=== PATIENT | female | born 1980 | race Caucasian/White ===

== ENCOUNTER 2024-11-03 07:09 | Day surgery (SDC) | payer OTHER, SELFPAY ==
[2024-10-20 09:45] VITALS: BMI 23.5
--- OUTSIDE RECORDS SUMMARY | 2024-11-03 07:12 | XMS_ITS | Encounter Summary ---
Author Organization [facility] Healthcare Address [address] [place] [address] Care Team Providers Care Cake Tester Name Role Phone Liya Leung MD Primary Care Provider WhitlashLiya MD Unavailable Encounter Details Date Type Department Care Team (Late st Contact Info) Description 10/15/2024 Results Follow-Up [facility] [address] [place] [id number] Yeni Cho MD [address] [facility] [id number] [place] [address] Dexa Axial Skeleton Bone Density 1 or 2 Site Social History Tobacco Use Types Packs/Day Years Used Date Smoking Tobacco: Former Cigarettes 0.3 10 0 06/03/2011 - 06/02/2021 Smokeless Tobacco: Never Comments:Light intermittent smoker since college but officially quit in May AUDIT-C Answer Date Recorded Q1: How often do you have a drink containing alc ohol? 2-3 times a week 07/05/2024 Q2: How many drinks containi ng alcohol do you have on a typical day when you are drinking? 1 or 2 07/05/2024 Q3: How often do you have si x or more drinks on one occasion? 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
--- OUTSIDE RECORDS SUMMARY | 2024-11-03 07:13 | XMS_ITS | Clinical Summary ---
Author Organization [facility] Address [facility] [place] [address] Care Team Providers Care Plastic Sheets Supervisor Name Role Phone Liya Leung MD Primary Care Provider SeanLiya sanders MD Unavailable [phone] Allergies Active Allergy Reactions Criticality Noted Date Comments Sulfa (Sulfonamide Antibiotics) Rash Medium 03/23 Medications budesonide-formo teroL (SYMBICORT) 80-4.5 mcg/actuation inhalerIndicatio ns:Mild intermittent asthma without complication,Pos t viral asthma,Subacute cough Inhale 2 puffs 2 (two) times a day as needed (shortness breath, wheezing) Rinse mouth with water after use. Do not swallow. 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 Premature menopause is associated with estrogen loss and leads to both short- term and long-term effects. In the short term, vasomotor symptoms, sleep disruption, vaginal dryness and sexual dysfunction can develop. Longer term effects include decreased bone mineral density and an increased risk of osteoporosis as well as an elevated risk of cardiovascular disease. Additionally, surgical menopause is a risk factor for increased all cause mortality. We discussed that estrogen therapy is the most effective treatment for vasomotor symptoms (hot flashes and night sweats) and to prevent declines in bone health in this context and is likely cardioprotective. Non-hormonal therapies are an option for patients who have contraindications to HT or make a personal choice not to use HT. These therapies are not as effective as estrogen, however many may provide relief from vasomotor symptoms. The recommendations for hormone replacement therapy given premature menopause is to use physiologic doses of estrogen therapy until the average age of natural menopause onset, approximately age 52. Recommended psychiatry for more severe mood symptoms including thoughts of self harm. Recommended meeting with breast cancer genetics counseling in the setting of family history of breast cancer diagnosed prior to menopause. She will decide which therapy to pursue after meeting with breast cancer genetics. We recommend DXA scan at this time. [facility] and ACOG handouts provided. Questions answered. Mild intermittent asthma without complication HNP (herniated nucleus pulposus), lumbar 021 Overview (07/24/2020): Added automatically from request for surgery [id number] Lumbar disc herniation with radiculopathy 2020 Herniation of intervertebral disc between L5 and S1 05/20/2020 Radiculopathy, lumbosacral region 04/17/2020 Encounters Date Type Department Care Team Description 10/15/2024 Results Follow-Up [facility] [address] [place] [address] Yeni Cho MD Dexa Axial Skeleton Bone Density 1 or 2 Site 10/13/2024 2:30 PM CDT Clinical Support [address]th [place] [address] [place] [address] Post-menopausal (Primary Dx); Premature ovarian failure; Osteoporosis screening 09/25/2024 Nurse Triage [facility]ne[facility] [address] [facility] 7th Floor [address] [place] [address] Liya Navarro, NED 08/17/2024 Telephone [facility]cology [address] [facility] 7th [address] [place] [address] Calvin Malone RN 08/10/2024 Nurse Triage [facility] Ob[facility]etric[facility] Gynecology [address] [facility] 7th [address] [place] [address] Liya Navarro, RN from Last 3 Months Immunizations Immunization Administration Dates Next Due Hep B, Unspecified 12/05/1999,07/11/1999, 000 Influenza, Quadrivalent, Rec ombinant, Egg Free, Preservative Free, Intramuscular 01/24/2016 Influenza, Quadrivalent, Spl it, Preservative Free, Intramuscular 03/12/2023,02/09/2022 Influenza, Trivalent, IM (MDV) 02/08/2014 Influenza, Trivalent, Preser vative Free, Intramuscular 12/25/2014 Influenza, Unspecified 12/22/2019,01/01/2018 MMR 06/05/1999 Surgical History Surgery Date Site/Laterality Comments AUGMENTATION MAMMOPLASTY 03/2016 LAPAROSCOPY ex lap for endometriosis BREAST SURGERY 03/2016 Medical History Medical History Date Comments Asthma Lumbar herniated disc Family History Medical History Relation Name Comments Allergy (severe) Father Cj Robles Asthma Father Cj Robles Cancer Father Cj Robles Prostate cancer Father Cj Robles Lung cancer Maternal Grandmother No Known Problems Mother Breast cancer Paternal Grandmother 50's Breast cancer Sister Keiko Colon cancer Neg Hx Relation Name Status Comments Father Cj Robles Alive Maternal Grandmother Mother Alive Paternal Grandmother 50's Sister Keiko Alive Social History Tobacco Use Types Packs/Day Years Used Date Smoking Tobacco: Former Cigarettes 0.3 10 0 06/03/2011 - 06/02/2021 Smokeless Tobacco: Never Tobacco Cessation:Counseling Given: Not Answered Comments:Light intermittent smoker since college but officially [...] on file 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 Gender Identity Not on file Sexual Orientation Not on file 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 on file Obstetrics History Para Term AB IAB SAB Ectopic Multiple Livin g Live Births 2 2 2 Date Outcome GA Total Labor Labor/2nd/3rd Weight Sex Type Anes PTL Kemi A1 A5 Name Clin 2008 Term M Vaginal Dario 2018 Term F Vaginal Bassem Last Filed Vital Signs Vital Sign Reading Time Taken Comments Blood Pressure 126/80 07/05/2024 3:11 PM CDT Pulse 71 03/12/2023 10:08 AM STATION ENGINEER Temperature 36.9 C (98.4 F) 02/24/2022 3:00 PM STATION ENGINEER Respiratory Rate 14 09/01/2022 10:40 AM CDT Oxygen Saturation 98% 02/24/2022 3:00 PM STATION ENGINEER Inhaled Oxygen Concentration - - Weight 71.9 kg (158 lb 9.6 oz) 07/05/2024 3:11 P M CDT Height 168.9 cm (5' 6.5) 07/05/2024 3:11 PM CDT Body Mass Index 25.22 07/05/2024 3:11 PM CDT Plan of Treatment Health Maintenance Due Date Last Done Comments Cervical Cancer Screening 1981 Hepatitis C Screening 1981 DTaP/Tdap/Td Vaccine (1 - Tdap) 1992 Pneumococcal vaccine <65 (1 of 2 - PCV) 2000 HPV Vaccines (1 - 3-dose SCD M series) 2008 Covid-19 Vaccine (4 - 2023-2 5 season) 2023 01/29/2021, 06/15/2020, 05/23/2020 Depression Screening 03/12/2024 03/12/2023, 03/10/2022, 07/18/2020, Additional history exists Breast Cancer Screening-Mammogram 05/31/2024 06/01/2023, 06/26/2022, 06/17/2021, Additional history exists Influenza Vaccine (#1) 2024 , 03/12/2023, 02/09/2022, Additional history exists Regular Well Visit/Exam 18-64 04/20/2025, 03/12/2023, 03/10/2022 Hepatitis B Screening Completed 12/05/1999 , 07/11/1999, 06/05/1999 Varicella Vaccines Discontinued Procedures Procedure Name Priority Date/Time Associated Diagnosis Comments DEXA AXIAL SKELETON BONE DENSITY 1 OR MORE SITES Schedule Routine, Read Routine (OP Routine) 10/13/2024 2:59 PM CDT Premature ovarian failure SCREENING MAMMOGRAM BILATERAL W JOSIAS W IMPLANTS Schedule Routine, Read Routine (OP Routine) 06/01/2023 10:47 AM CDT Screening mammogram, encounter for from Last 3 Months or Most Recently Relevant to Health Maintenance Results * Dexa Axial Skeleton Bone Density 1 or 2 Site (10/13/2024 2:59 PM CDT) Anatomical Region Laterality Modality Body N/A Radiographic Alondra ging Narrative 10/13/2024 4:10 PM CDT Patient Name: Rupa Mariscal Date of : 1980 Date of scan: 10/13/2024 Bone mineral density was performed on a HoloRadioRx Discovery Densitometer. Based on machine cross-calibration and precision studies the least significant changes of this densitometer is 0.024 g/cm2 at the spine, 0.020 g/cm2 at the total proximal femur, and 0.014g/cm2 at the forearm. HISTORY: This is a 44 y.o. postmenopausal female with a history of asthma. She reports that she quit smoking about 3 years ago. Her smoking use included cigarettes. She started smoking about 13 years ago. She has a 2.5 pack-year smoking history. She has never used smokeless tobacco. Currently on treatment with calcium, previously treated with leuprolide (Lupron), and current complaint of back pain. INDICATIONS: Menopause status, screening for osteoporosis, and family history of osteoporosis. FINDINGS: BONE MINERAL DENSITY OF THE LUMBAR SPINE Bone Mineral Density (BMD) of the lumbar spine was measured from L1-L4 and the average density was calculated to be 1.014 gm/cm2. This corresponds to a T-score (standard deviations from the mean of young adults) of -0.3. There is no previous study available for comparison. BONE MINERAL DENSITY OF THE PROXIMAL FEMUR Bone Mineral Density (BMD) of the left hip total was found to be 0.916 gm/cm2. This corresponds to a T-score standard deviations from the mean of young adults of -0.2. Femoral neck is 0.777 gm/cm2 with a T-score (standard deviations from the mean of young adults) of -0.6. There is no previous study available for comparison. SUMMARY: Bone mineral density is near the young adult normal mean with no increased risk for fracture. ADDITIONAL COMMENTS: Postmenopausal Women and Men Over 50: Diagnostic criteria: Osteoporosis: BMD at or below -2.5 T-score; Osteopenia (low bone mass): BMD between -1.0 and -2.5 T-score. If the patient has a history of a fragility fracture, a fracture that occurred with trauma equivalent to a fall from a standing position or less, then the diagnosis is osteoporosis regardless of bone density. The history and data sections of the bone mineral density scan were prepared by Marcus Hawley) JAYE who is accredited by the International Society of Clinical Densitometry. The overall patient assessment and scan interpretation were performed by Lisandra Lo M.D. who is certified by the International Society of Clinical Densitometry. [id number] us Veena Cheng MD IMLisa DXA PROCEDURES Final Resu lt * Screening Mammogram Bilateral W Josias W Implants (06/01/2023 10:47 AM CDT) Anatomical Region Laterality Modality Breast Bilateral Mammography Narrative 06/02/2023 10:59 AM CDT Mammogram Technique: Bilateral Digital Breast Tomosynthesis, Bilateral C-view 2D Screening mammogram. Views obtained: bilateral craniocaudal; bilateral craniocaudal implant displaced; bilateral mediolateral oblique; and bilateral mediolateral oblique implant displaced. Computer Aided Detection was performed. Mammogram Findings: The present examination has been compared to prior imaging studies performed at [facility] on 06/17/2021, 07/04/2021 and 06/26/2022. The breasts are heterogeneously dense, which may obscure small masses. There is no suspicious abnormality in either breast. Impression: There is no mammographic evidence of malignancy. Annual screening mammography is recommended. OVERALL FINAL ASSESSMENT: BI-RADS CATEGORY 1: Negative. Procedure Note Lisa Winston MD - 06/02/2023 Mammogram Technique: Bilateral Digital Breast Tomosynthesis, Bilateral C-view 2D Screening mammogram. Views obtained: bilateral craniocaudal; bilateralcraniocaudal implant displaced; bilateral mediolateral oblique; and bilateral mediolateral oblique implant displaced. Computer Aided Detection was performed. Mammogram Findings: The present examination has been compared to prior imaging studies performed at [facility] on 06/17/2021, 07/04/2021 and 06/26/2022. The breasts are heterogeneously dense, which may obscure small masses. There is no suspicious abnormality in either breast. Impression: There is no mammographic evidence of malignancy. Annual screening mammography is recommended. OVERALL FINAL ASSESSMENT: BI-RADS CATEGORY 1: Negative. us Self Screening Mammogram IMG MAMMO PROCEDURES Fi nal Result from Last 3 Months or Most Recently Relevant to Health [place] [address] [facility] [employer] C[employer] C[employer] Care Teams Plastic Sheets Supervisor Relationship Specialty Start Date End Date Liya Leung MD PCP - General Family Practice 03/10/22 Liya Estrada MD [address] [place] [address] Surgeon Medical Oncology 03/08/24
--- OUTSIDE RECORDS SUMMARY | 2024-11-03 07:13 | XMS_ITS | Clinical Summary ---
Author Organization [facility] [employer] Address [address] [facility] [place] [address] Care Team Providers Care Ios Software Engineer Name Role Phone WhitnyeDelfino pavon Primary Care Provider [phone] Source Comments [facility] [employer],non-owned Affiliates and Associated Physician Practices is amultiple site organization consisting of ambulatory clinics and hospital sitesin [place], [place], [place] and [place]. This disclosure is being madepursuant to the Care Everywhere program and may not contain all information available regarding this patient. Last updated 17.[facility] [employer] Allergies Active Allergy Reactions Criticality Noted Date Comments Sulfa Drugs Rash Medium 08/29/2019 Medications * Be aware that medications may not be up to date on this document. Alwaysverify current medications with the patient. Levonorgestrel (LILETTA, 52 MG,) 19.5 MCG/DAY by Intrauterine route once Active Active Problems Patient Care Coordination No te Formatting of this note migh t be different from the original. 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 Gender Identity Not on file Sexual Orientation Not on file Last Filed Vital Signs Vital Sign Reading Time Taken Comments Blood Pressure 100/72 08/29/2019 9:25 AM CDT Pulse 74 08/29/2019 9:25 AM CDT Temperature 36.9 C (98.4 F) 08/29/2019 9:25 AM CDT Respiratory Rate 16 08/29/2019 9:25 AM CDT Oxygen Saturation 99% 08/29/2019 9:25 AM CDT Inhaled Oxygen Concentration - - Weight 68 kg (150 lb) 08/29/2019 9:25 AM CDT Height 170.2 cm (5' 7) 08/29/2019 9:25 AM CDT Body Mass Index 23.49 08/29/2019 9:25 AM CDT Plan of Treatment Health Maintenance Due Date Last Done Comments LIPID TESTING 1981 HIV SCREENING 1996 HEPATITIS C SCREENING 03/07/1999 DTAP/TDAP/TD VACCINES (1 - Tdap) 2000 HEPATITIS B VACCINE (1 of 3 - 19+ 3-dose series) 2000 HPV VACCINE (1 - 3-dose SCDM series) 2008 MAMMOGRAM 02/05/2020 02/04/2018 COVID-19 VACCINE (1 - 2023-2 5 season) 2023 DEPRESSION SCREENING 03/22/2024 INFLUENZA VACCINE (#1) 2024 8, 01/24/2016 ZOSTER VACCINE (1 of 2) 2031 HIB VACCINE Aged Out No longer eligi ble based on patient's age to complete this topic MENINGOCOCCAL (Group B) VACCINE SHARED DECISION-MAKING Aged Out No longer eligible based on patient's age to complete this topic MENINGOCOCCAL GROUPS A/C/Y/W VACCINE Aged Out No longer eligible b ased on patient's age to complete this topic PNEUMOCOCCAL VACCINE Aged Out No long er eligible based on patient's age to complete this topic Insurance CIGNA Care Teams Ios Software Engineer Relationship Specialty Start Date End Date Delfino Olson DO [address] [place] [address] PCP - General Family Medicine 01/24/16
--- OUTSIDE RECORDS SUMMARY | 2024-11-03 07:14 | XMS_ITS | Clinical Summary ---
Author Organization [facility] Address [address] [facility] [place] [address] Phone Care Team Providers Care Tank Builder Supervisor Name Role Phone Unavailable Primary Care Provider Unavailabl e Medications budesonide-form oteroL (SYMBICORT) 80-4.5 mcg/actuation HFA Aerosol Inhaler Take 2 Puffs by inhalation 2 times daily as needed for shortness of breath or wheezing. Rinse mouth with water after use and do not swallow. 10.2 Gram 03/12/2023 3:43 PM CHARGER TESTER 3 Active venlafaxine (EFFEXOR XR) 75 mg Extended Release 24 hour capsule Take 1 capsule (75 mg total) by mouth daily 90 Capsule 4 04/21/2024 3:09 PM CHARGER TESTER 5 Active progesterone micronized (PROMETRIUM) 100 mg Capsule Take 1 capsule (100 mg total) by mouth nightly 90 Capsule 3 5 Active dicyclomine (BENTYL) 10 mg capsule Take 1 Capsule (10 mg) by mouth 3 times daily as needed for abdominal pain. 90 Capsule 2 09/18/2024 7:33 PM CDT 5 Active estradioL 0.1 mg/[address] 1 patch on skin two times weekly as directed. 24 Patch 3 10/24/2024 3:22 PM CDT 5 Active Encounters Date Type Department Care Team Description 10/24/2024 External Device Data STL ABSTRACTION Provider, Abstract 10/04/2024 External Device Data STL ABSTRACTION Provider, Abstract 10/04/2024 External Device Data STL ABSTRACTION Provider, Abstract 09/06/2024 External Device Data STL ABSTRACTION Provider, Abstract 08/22/2024 External Device Data STL ABSTRACTION Provider, Abstract 08/15/2024 External Device Data STL ABSTRACTION Provider, Abstract 08/10/2024 External Device Data STL ABSTRACTION Provider, Abstract 08/09/2024 External Device Data STL ABSTRACTION Provider, Abstract from Last 3 Months Immunizations Immunization Administration Dates Next Due INFLUENZA VACCINE QUADRIVALENT 6 MOS UP PF IM Social History Tobacco Use Types Packs/Day Years Used Date Smoking Tobacco: Never Assessed Comments Unknown Sex and Gender Information Value Date Recorded Sex Assigned at Not on file Legal Sex Female 8:44 AM CDT Gender Identity Not on file Sexual Orientation Not on file Plan of Treatment Health Maintenance Due Date Last Done Comments HPV VACCINES (1 - 3-dose series) 1996 DTAP/TDAP/TD VACCINES (1 - Tdap) 2000 HPV/Cotest (21-29) 2002 CERVICAL CANCER SCREENING 2011 HPV/Cotest (30-65) 2011 PAP SMEAR 2011 BREAST CANCER SCREENING 2021 INFLUENZA VACCINE (#1) 2024 02/09/2022 HEPATITIS B VACCINES Completed 12/05/1999, 07/11/1999, 06/05/1999 Insurance [employer]
[2024-11-03 12:50] VITALS: BP 109/73; PULSE 65; RESP 18; TEMP 36.6; O2SAT 100; BMI 24.7
[2024-11-03] MEDS: LACTATED RINGERS 1,000 ML 150 ML IV CONT (12:57)
--- NOTE | 2024-11-03 13:21 | WPDANESEPPF ---
Anes - Initial Pre Proc Eval Procedure: Operation Date: 11/03/24 13:30 Proposed Procedures p Diagnostic Colonoscopy - Matthias Reyes MD Date/Time: 11/03/24 13:21 Surgeon: Matthias Reyes MD Pre Op Diagnosis: Hemorrhage of anus and rectum Patient Data Age: 44 Gender: F Height: 1.7 m Weight: 71.6 kg Last Vital Signs Temp 98 F 11/03/24 12:50 Pulse 65 11/03/24 12:50 Resp 18 11/03/24 12:50 BP 109/73 11/03/24 12:50 Pulse Ox 100 11/03/24 12:50 O2 Del Method Room Air 11/03/24 12:50 Allergies Allergy/AdvReac Type Severity Reaction Status Date / Time Sulfa (Sulfonamide Allergy Unknown Rash Verified 11/03/24 12:49 Antibiotics) Home Medications ?Medication ?Instructions ?Recorded ?Confirmed ?Type albuterol sulfate 90 mcg/actuation 2 puff inhalation Q4H PRN 09/14/24 10/20/24 History aerosol inhaler (Ventolin HFA) shortness of breath or wheezing estradiol 0.1 mg/24 hr semiweekly 1 patch transdermal .twice week 10/20/24 11/03/24 History transdermal patch Patient hx anesthesia problems: none Family hx anesthesia problems: none Results Review: All pre-operative results and documents have been reviewed as part of the pre-operative evaluation. [facility] Surgical History Surgical History Hx of hysterectomy History of reconstruction of both breasts Family History Family History Sibling Family history of obesity Grandparent Family history of cardiovascular disease Cerebrovascular accident Family history of lung cancer Family history of malignant neoplasm of breast in first degree relative Father Malignant neoplasm of prostate Social History Social History Smoking status: Former smoker Tobacco type: cigarettes Smoking end date: 03/22/15 Alcohol intake: current Drinks per week: 5 Substance use type: does not use Living arrangements: with family Spiritual care concerns: No Anes - Eval Final PreProcedure Day of Procedure 11/03/24 13:21 Patient weight: normal Lungs: normal air movement Airway: Mallampati scale class II Neurological: alert and oriented Last oral intake: >/= 8 hours ASA classification: I Emergent: no Anesthetic plan: proceed Anesthesia type and monitoring: general GIVS and standard monitoring Results Review: All pre-operative results and documents have been reviewed as part of the pre-operative evaluation. Healthy, change in bowel habits. Informed Consent: The patient's anesthetic plan and its attendant risks and benefits were discussed with the patient/family/POA. Questions were solicited and answers provided to the satisfaction of the patient/family/POA.
--- NOTE | 2024-11-03 13:28 | PM.IMHP ---
H&P: HPI History of Present Illness Date/Time: 11/03/24 13:28 Chief Complaint: Bright red blood per rectum- change in bowel habitus Narrative: over the past 4 months, the patient has had a few Episodes of bright red blood per rectum. in addition, she also endorses a tendency to have small caliber stools and lower abdominal discomfort, intermittently. She is referred for colonoscopy. Review of Systems Review of Systems: All systems reviewed & are unremarkable except as noted in HPI and below PMFSH Surgical History Surgical History Hx of hysterectomy History of reconstruction of both breasts Family History Family History Sibling Family history of obesity Grandparent Family history of cardiovascular disease Cerebrovascular accident Family history of lung cancer Family history of malignant neoplasm of breast in first degree relative Father Malignant neoplasm of prostate Social History Social History Smoking status: Former smoker Tobacco type: cigarettes Smoking end date: 03/22/15 Alcohol intake: current Drinks per week: 5 Substance use type: does not use Living arrangements: with family Spiritual care concerns: No Meds Home Medications and Allergies Home Medications ?Medication ?Instructions ?Recorded ?Confirmed ?Type albuterol sulfate 90 mcg/actuation 2 puff inhalation Q4H PRN 09/14/24 10/20/24 History aerosol inhaler (Ventolin HFA) shortness of breath or wheezing estradiol 0.1 mg/24 hr semiweekly 1 patch transdermal .twice week 10/20/24 11/03/24 History transdermal patch Allergies Allergy/AdvReac Type Severity Reaction Status Date / Time Sulfa (Sulfonamide Allergy Unknown Rash Verified 11/03/24 12:49 Antibiotics) Vital Signs Vital Signs - 24 hr 11/03/24 12:50 Temperature 98 F Pulse Rate 65 Respiratory Rate 18 Blood Pressure 109/73 Pulse Oximetry 100 Oxygen Delivery Room Air Exam Const: General: cooperative and healthy appearing Resp: Effort & Inspection: normal respiratory effort and able to speak in complete sentences Auscultation: clear to auscultation bilaterally Cardio: Rate: regular rate Rhythm: regular rhythm GI: Inspection: normal to inspection GI Palp: No No hepatosplenomegaly present Auscultation: normal bowel sounds Rectal Exam: deferred Skin: General skin exam: normal color Psych: Appearance: grossly normal Mental Status: mental status grossly normal Assessment and Plan Assessment and plan (1) Rectal bleeding: Code(s): K62.5 - Hemorrhage of anus and rectum Status: Acute Assessment and Plan: The patient is deemed a good candidate for the procedure. Consent signed. Will proceed.
--- NOTE | 2024-11-03 13:50 | S_PTH ---
PATIENT: Rupa Mariscal LOC: [facility] U#:[id number] AGE/SX: 44/F ROOM: RE11/03/[address]: Matthias Reyes MD : 1980 BED: DIS: 11/03/2024 SPEC #: [id number] RECD: 11/06/24 08:22 STATUS: VERONICA ARIAS #: [id number] [place]: 11/03/24 13:[address]: Matthias Reyes DEPT: [facility] Surgical RECD BY: Louise Miles Tissues: A - Colon Polypectomy Procedures: Hematoxylin and Eosin Stain Gross and Microscopic Level 4
[2024-11-03 13:53] VITALS: BP 101/55; PULSE 67; RESP 21; O2SAT 100
[2024-11-03 14:03] VITALS: BP 102/60; PULSE 60; RESP 17; O2SAT 100
[2024-11-03 14:13] VITALS: BP 104/65; PULSE 50; RESP 12; O2SAT 100
== END 2024-11-03 14:20 | disposition home or self-care (01) ==
PROVIDERS: Visit Provider Internal Medicine Gastroenterology
PROC: 0DJD8ZZ Inspection of Lower Intestinal Tract, Via Natural or Artificial Opening Endoscopic (ICD-10-PCS; CPT 45378; principal; 2024-11-03 13:30)
DX: D12.2 Benign neoplasm of ascending colon (principal); K64.8 Other hemorrhoids; Z79.51 Long term (current) use of inhaled steroids; Z98.890 Other specified postprocedural states; Z87.891 Personal history of nicotine dependence; Z80.1 Family history of malignant neoplasm of trachea, bronchus and lung; Z80.3 Family history of malignant neoplasm of breast; Z80.42 Family history of malignant neoplasm of prostate; Z82.49 Family history of ischemic heart disease and other diseases of the circulatory system
CPT/HCPCS: 45385; 88305; J2003; J2704; J7120